=== PATIENT | male | born 1945 | race Caucasian/White ===

== ENCOUNTER 2019-08-29 08:20 | Outpatient (CLI) | payer MEDICARE, SELFPAY ==
[2019-08-29 08:56] LABS: Basophils Percent Auto 0.2 % (0.2-1.2); Eosinophils Absolute Auto 0.5 K/mm3 (0-0.3); Eosinophils Percent Auto 12.8 % (0-4.4); Hematocrit 38.5 % (42.0-52.0); Hemoglobin 12.9 g/dL (14.0-18.0); Immature Granulocyte Absolute 0.01 K/mm3 (0.00-0.031); Immature Granulocyte Percent A 0.2 % (0-0.5); Lymphocytes Absolute Auto 1.33 K/mm3 (0.9-3.2); Mean Corpuscular HGB Conc 33.5 g/dl (32-36); Mean Corpuscular Hemoglobin 30.4 pg (26-34); Mean Corpuscular Volume 90.8 fl (80-100); Mean Platelet Volume 10.4 fl (7.4-10.4); Monocytes Absolute Auto 0.6 K/mm3 (0.1-0.6); Neutrophils Absolute Auto 1.7 K/mm3 (1.3-6.7); Neutrophils Percent Auto 40.8 % (45.5-73.1); Platelet Count Result 193 k/mm3 (150-375); Red Blood Count 4.24 M/mm3 (4.6-6.20); Red Cell Distribution Width 12.2 % (11.5-14.5); White Blood Count 4.2 K/mm3 (4.5-10.0)
[2019-08-29 09:09] LABS: Alanine Aminotransferase 14 U/L (4-50); Aspartate Amino Transferase 24 U/L (17-59); Blood Urea Nitrogen 23 mg/dL (9-20); Calcium 9.4 mg/dL (8.4-10.2); Carbon Dioxide 27 mmol/L (22-30); Chloride 99 mmol/L (98-107); Cholesterol 141 mg/dL (0-200); Estimated Glomerular Filt Rate 54; Glucose 138 mg/dL (75-110); HDL Direct 47 mg/dL; Magnesium 1.9 mg/dL (1.6-2.3); Potassium 4.1 mmol/L (3.4-5.0); Sodium 140 mmol/L (137-145); Triglycerides 150 mg/dL (<150); Uric Acid 7.8 mg/dL (3.5-8.5)
[2019-08-29 09:19] LABS: Hemoglobin A1C 7.6 % (<5.7)
[2019-08-29 09:20] LABS: LDL Cholesterol Direct 60 mg/dL
[2019-08-29 09:40] LABS: Prostate Specific Antigen 0.6 ng/mL (< OR = 4.0)
[2019-08-29 09:58] LABS: Free T4 Free Thyroxine 0.84 ng/mL (0.78-2.19); Vitamin D 25 Hydroxy 37.2 ng/mL
[2019-08-29 12:00] LABS: Folic Acid 11.4 ng/mL (2.76->20)
== END 2019-08-29 08:21 | disposition home or self-care (01) ==
PROVIDERS: PCP Internal Medicine; Visit Provider Internal Medicine
DX: E78.2 Mixed hyperlipidemia (principal); I11.9 Hypertensive heart disease without heart failure; E11.9 Type 2 diabetes mellitus without complications; R53.83 Other fatigue; Z12.5 Encounter for screening for malignant neoplasm of prostate; E53.8 Deficiency of other specified B group vitamins; E55.9 Vitamin D deficiency, unspecified
CPT/HCPCS: 36415; 80048; 80061; 82306; 82607; 82746; 83036; 83735; 84153; 84439; 84443; 84450; 84460; 84550; 85025; G0103

== ENCOUNTER 2020-08-22 10:10 | Outpatient (CLI) | payer MEDICARE, SELFPAY ==
[2020-08-22 10:31] LABS: Hematocrit 38.5 % (42.0-52.0); Hemoglobin 13.4 g/dL (14.0-18.0); Mean Corpuscular HGB Conc 34.8 g/dl (32-36); Mean Corpuscular Hemoglobin 30.9 pg (26-34); Mean Corpuscular Volume 88.7 fl (80-100); Mean Platelet Volume 10.2 fl (7.4-10.4); Platelet Count Result 236 k/mm3 (150-375); Red Blood Count 4.34 M/mm3 (4.6-6.20); White Blood Count 6.9 K/mm3 (4.5-10.0)
[2020-08-22 11:09] LABS: Alanine Aminotransferase 12 U/L (4-50); Anion Gap 6 mmol/L (8-16); Aspartate Amino Transferase 23 U/L (17-59); Blood Urea Nitrogen 21 mg/dL (9-20); Calcium 9.3 mg/dL (8.4-10.2); Carbon Dioxide 29 mmol/L (22-30); Chloride 104 mmol/L (98-107); Cholesterol 141 mg/dL (0-200); Estimated Glomerular Filt Rate 59; Glucose 172 mg/dL (75-110); HDL Direct 51 mg/dL; Potassium 4.1 mmol/L (3.4-5.0); Sodium 139 mmol/L (137-145); Triglycerides 147 mg/dL (<150)
[2020-08-22 11:52] LABS: Free T4 Free Thyroxine 1.19 ng/mL (0.78-2.19)
[2020-08-22 13:24] LABS: LDL Cholesterol Direct 58 mg/dL
[2020-08-22 13:37] LABS: Hemoglobin A1C 7.5 % (<5.7)
[2020-08-22 13:44] LABS: Prostate Specific Antigen 0.6 ng/mL (< OR = 4.0)
[2020-08-26 11:29] LABS: Testosterone Free 79.1 pg/mL (30.0-135.0); Testosterone Total 531 ng/dL (250-1100)
== END 2020-08-22 10:11 | disposition home or self-care (01) ==
LOC: ANHLAB 10:12
PROVIDERS: PCP Internal Medicine; Visit Provider Internal Medicine
DX: E78.2 Mixed hyperlipidemia (principal); R53.81 Other malaise; R53.83 Other fatigue; I10 Essential (primary) hypertension; E11.9 Type 2 diabetes mellitus without complications; Z12.5 Encounter for screening for malignant neoplasm of prostate
CPT/HCPCS: 36415; 80048; 80061; 83036; 84153; 84402; 84403; 84439; 84450; 84460; 85027; G0103